=== PATIENT | male | born 1990 | race Caucasian/White ===

== ENCOUNTER 2022-04-02 18:24 | Emergency (ER) | payer BC ==
[~2022-04-02] VITALS: Ht 175.3 cm; Wt 108.9 kg
[2022-04-02 19:54] VITALS: BP 138/78
--- NOTE | 2022-04-02 21:10 | NUR ---
DPatient discharged to home in stable condition. Written and verbal after care instructions given. Patient verbalizes understanding of instruction.
== END 2022-04-02 21:12 | disposition home or self-care (01) ==
LOC: ER 18:24
DX: S61.012A Laceration without foreign body of left thumb without damage to nail, initial encounter (principal); F17.200 Nicotine dependence, unspecified, uncomplicated; W26.8XXA Contact with other sharp object(s), not elsewhere classified, initial encounter; Y93.89 Activity, other specified; Y92.89 Other specified places as the place of occurrence of the external cause; Y99.8 Other external cause status
CPT/HCPCS: 73130-TC